=== PATIENT | female | born 1980 | race Caucasian/White ===

== ENCOUNTER 2024-03-03 16:15 | Outpatient (CLI) | payer BC | END 2024-03-03 20:48 | disposition home or self-care (01) | LOC: SCA 16:15 | PROVIDERS: ATTEND Surgery Vascular Surgery | DX: Z01.810 Encounter for preprocedural cardiovascular examination (principal); I83.893 Varicose veins of bilateral lower extremities with other complications | CPT/HCPCS: 93005 ==